=== PATIENT | female | born 1970 | race Caucasian/White ===

== ENCOUNTER → 2016-04-09 | Outpatient (CLI) | payer OTHER ==
--- NOTE | 2016-04-09 11:13 | US ---
EXAMINATION TYPE: US thyroid st tissue head/neck DATE OF EXAM: 04/09/2016 9:29 AM COMPARISON: NONE CLINICAL HISTORY: Hypercalcemia; elevated parathyroid hormone; abnormal thyroid function test GLAND SIZE: Right Lobe: 4.5 x 1.4 x 1.7cm Overall Parenchyma: heterogenous Left Lobe: 5.2 x 1.6 x 1.4cm Overall Parenchyma: heterogeneous Isthmus Thickness: 0.6cm NODULES RIGHT: # of nodules measured on right: 1 1. 1.0 x 0.7 x 0.6 cm isoechoic solid nodule at the lower pole with well-defined margins. This nodu le is wider than tall and shows intranodular vascularity. Prior size: no prior US here LEFT: # of nodules measured on left: 0 Just deep to the inferior aspect of the right lobe of the thyroid there is a hypoechoic nodule measur ing 0.7 cm x 1.6 cm x 0.8 cm. IMPRESSION: Indeterminate hypoechoic focus deep to the lower pole of the right lobe of the thyroid could represen t parathyroid adenoma. Thyroid nodule in the lower pole of the right lobe of the gland.
--- NOTE | 2016-04-09 12:04 | MM ---
Reason for exam: follow-up at short interval from prior study. Last mammogram was performed 7 months ago. Physical Findings: Nurse did not find any significant physical abnormalities on exam. MG Diagnostic Mammo RT w CAD CC and MLO view(s) were taken of the right breast. Prior study comparison: September 12, 2015, bilateral MG screening mammo w CAD. The breast tissue is heterogeneously dense. This may lower the sensitivity of mammography. No significant new findings when compared with previous films. These results were verbally communicated with the patient and result sheet given to the patient on 04/09/16. ASSESSMENT: Benign, BI-RAD 2 RECOMMENDATION: Return to routine screening mammogram schedule for both breasts. Back on schedule for August 2016.
--- NOTE | 2016-04-09 12:07 | USB ---
Reason for exam: follow-up at short interval from prior study. US Breast RT Right breast ultrasound including all four quadrants, the retroareolar region and axilla demonstrates a 0.4 x 0.5 x 0.4cm oval, hypoechoic lesion at 11 o'clock with fatty tissue consistent with lymph node. These results were verbally communicated with the patient and result sheet given to the patient on 04/09/16. ASSESSMENT: Benign, BI-RAD 2 RECOMMENDATION: Return to routine screening mammogram schedule for both breasts. Back on schedule.
== END ==
LOC: RADMAMWWP 09:23
PROVIDERS: ATTEND Family Medicine
DX: R92.8 Other abnormal and inconclusive findings on diagnostic imaging of breast (principal); E04.1 Nontoxic single thyroid nodule
CPT/HCPCS: 76536; 76641; G0206

== ENCOUNTER → 2016-04-25 | Outpatient (CLI) | payer OTHER ==
--- NOTE | 2016-04-25 12:28 | NM ---
EXAMINATION TYPE: NM thyroid image only DATE OF EXAM: 04/25/2016 11:37 AM COMPARISON: Ultrasound 04/09/2016 HISTORY: 46-year-old female with goiter, hyperparathyroid. TECHNIQUE: After the intravenous administration of 10.13 mCi Tc 99m Sodium Pertechnetate thyroid imag ing is performed. FINDINGS: There is a focal hot nodule within the lower pole of the right lobe of the thyroid gland probably cor responding to the 1 cm nodule seen on ultrasound. There may be some slight suppression of the thyroid uptake adjacent to the nodule. Otherwise, no discrete cold defect is identified. IMPRESSION: Solitary hot nodule right lower pole. This could correspond to either one of the 2 nodules seen on ul trasound. Correlate with patient's symptoms and laboratory assessment to exclude a hyperfunctioning a denoma.
== END | disposition home or self-care (01) ==
LOC: RADNMMAIN 10:56
PROVIDERS: ATTEND Internal Medicine Endocrinology, Diabetes & Metabolism
DX: E04.1 Nontoxic single thyroid nodule (principal)
CPT/HCPCS: 78013; A9512

== ENCOUNTER → 2016-05-02 | Outpatient (CLI) | payer OTHER ==
--- NOTE | 2016-05-02 16:37 | NM ---
EXAMINATION TYPE: NM parathyroid w/spect DATE OF EXAM: 05/02/2016 3:54 PM COMPARISON: NONE HISTORY: Abnormal parathyroid levels TECHNIQUE: Following administration of 10 mCi Tc99m Sestamibi. Anterior projection images of the neck and chest were obtained 10 minutes and 3 hours post injection. SPECT images of the neck and chest were obtaine d and reconstructed in three axes. FINDINGS: Thyroid tracer washout: Delayed images demonstrate near-complete tracer washout from the thyroid. Parathyroid uptake: There is focal uptake noted which persists on delayed imaging overlying the lower pole of the right thyroid gland compatible with parathyroid adenoma. No additional focal areas of in creased uptake seen. Normal uptake: There is physiological tracer uptake in the myocardium, liver, salivary glands, and th yroid gland. IMPRESSION: Findings compatible with parathyroid adenoma overlying the lower pole of the right thyroid gland.
== END | disposition home or self-care (01) ==
LOC: RADNMMAIN 11:32
PROVIDERS: ATTEND Internal Medicine Endocrinology, Diabetes & Metabolism
DX: E04.9 Nontoxic goiter, unspecified (principal); E21.3 Hyperparathyroidism, unspecified
CPT/HCPCS: 78071; A9500

== ENCOUNTER → 2016-05-03 | Outpatient (CLI) | payer OTHER ==
[2016-05-03 10:18] LABS: Basophils % (A) 1 %; CH 30.8; Eosinophils # (A) 0.1 k/uL (0-0.7); Eosinophils % (A) 2 %; HCT 40.8 % (34.0-46.0); HDW 2.64; Luc # (Auto) 0.05; Luc % (Auto) 1; Lymphocytes # (A) 1.2 k/uL (1.0-4.8); Lymphocytes % (A) 24 %; MCH 29.8 pg (25.0-35.0); MCHC 31.8 g/dL (31.0-37.0); MCV 93.8 fL (80.0-100.0); Mean Platelet Volume 10.2; Monocytes # (A) 0.3 k/uL (0-1.0); Monocytes % (A) 6 %; Neutrophils # (A) 3.2 k/uL (1.3-7.7); Neutrophils % (A) 66 %; RBC 4.35 m/uL (3.80-5.40); RDW 13.3 % (11.5-15.5); WBC 4.8 k/uL (3.8-10.6); WBC (Perox) 4.65
[2016-05-03 10:33] LABS: Anion Gap 11 mmol/L; Blood Urea Nitrogen 11 mg/dL (7-17); Calcium 11.1 mg/dL (8.4-10.2); Carbon Dioxide 25 mmol/L (22-30); Chloride 108 mmol/L (98-107); Glucose 83 mg/dL (74-99); Iron 89 ug/dL (37-170); Magnesium 2.3 mg/dL (1.6-2.3); Non-African American GFR(MDRD) >60 (>60 ml/min/1.73 sqM); Phosphorous 2.2 mg/dL (2.5-4.5); Potassium 4.5 mmol/L (3.5-5.1); Sodium 144 mmol/L (137-145); Uric Acid 4.8 mg/dL (3.7-7.4)
[2016-05-03 10:42] LABS: % Iron Saturation 21.3 % (20-50); Total Iron Binding Capacity 417 ug/dL (265-497)
== END | disposition home or self-care (01) ==
LOC: LABWHC1 10:04
PROVIDERS: ATTEND Internal Medicine Nephrology
DX: E83.52 Hypercalcemia (principal); D64.9 Anemia, unspecified; M10.9 Gout, unspecified
CPT/HCPCS: 36415; 80048; 82164; 82306; 82728; 83540; 83550; 83735; 83970; 84100; 84550; 85025

== ENCOUNTER → 2016-09-12 | Outpatient (CLI) | payer OTHER ==
--- NOTE | 2016-09-15 11:10 | MM ---
Reason for exam: screening (asymptomatic). Last mammogram was performed 5 months ago. History: Family history of breast cancer in mother at age 40. Physical Findings: A clinical breast exam by your physician is recommended on an annual basis and results should be correlated with mammographic findings. MG Screening Mammo w CAD Bilateral CC and MLO view(s) were taken. Prior study comparison: September 19, 2015, right breast US breast workup RT. September 12, 2015, bilateral MG screening mammo w CAD. The breast tissue is heterogeneously dense. This may lower the sensitivity of mammography. There is chronic nodularity in the right axilla. There is no discrete abnormality. ASSESSMENT: Benign, BI-RAD 2 RECOMMENDATION: Routine screening mammogram of both breasts in 1 year.
== END ==
LOC: RADMAMWWP 14:04
PROVIDERS: ATTEND Obstetrics & Gynecology
DX: Z12.31 Encounter for screening mammogram for malignant neoplasm of breast (principal)